=== PATIENT | male | born 1970 | race Caucasian/White ===

== ENCOUNTER 2018-06-26 09:25 | Emergency (ER) | payer OTHER ==
[~2018-06-26] VITALS: Ht 175.3 cm; Wt 74.8 kg
[2018-06-26 09:36] VITALS: Ht 175.3 cm; Wt 74.8 kg
[2018-06-26 10:40] VITALS: BP 123/91
== END 2018-06-26 10:40 | disposition home or self-care (01) ==
LOC: ED 09:25
DX: Z02.79 Encounter for issue of other medical certificate (principal); F17.210 Nicotine dependence, cigarettes, uncomplicated; Z71.6 Tobacco abuse counseling; F12.90 Cannabis use, unspecified, uncomplicated; F15.10 Other stimulant abuse, uncomplicated; I49.9 Cardiac arrhythmia, unspecified